=== PATIENT | female | born 1980 | race Two or more races ===

== ENCOUNTER 2022-06-06 15:05 | Emergency (ER) | payer MEDICAID ==
[~2022-06-06] VITALS: Ht 154.9 cm; Wt 86.2 kg
[2022-06-06 15:05] VITALS: BP 131/99
--- NOTE | 2022-06-06 16:20 | NUR ---
Patient discharged to home in stable condition. Written and verbal after care instructions given. Patient verbalizes understanding of instruction.
== END 2022-06-06 16:20 | disposition home or self-care (01) ==
LOC: ER 15:15
DX: R03.0 Elevated blood-pressure reading, without diagnosis of hypertension (principal)

== ENCOUNTER 2022-06-20 12:28 | Emergency (ER) | payer MEDICAID ==
[~2022-06-20] VITALS: Ht 154.9 cm; Wt 85.7 kg
[2022-06-20 12:42] VITALS: BP 138/84
== END 2022-06-20 13:21 | disposition home or self-care (01) ==
LOC: ER 12:36
DX: R03.0 Elevated blood-pressure reading, without diagnosis of hypertension (principal)

== ENCOUNTER 2023-03-05 21:24 | Emergency (ER) | payer MEDICAID ==
[~2023-03-05] VITALS: Ht 154.9 cm; Wt 86.2 kg
--- NOTE | 2023-03-05 22:55 | NUR ---
URINE COLLECTED, SENT TO LAB
[2023-03-05 22:57] LABS: BASOPHILS # (AUTO) 0.1 K/uL (0.0-0.2); BASOPHILS % (AUTO) 1.5 % (0.0-2.0); EOSINOPHILS % (AUTO) 3.3 % (0.0-6.0); HEMATOCRIT 38 % (33-45); LYMPHOCYTES # (AUTO) 2.1 K/uL (0.8-4.8); LYMPHOCYTES % (AUTO) 30.9 % (20.0-44.0); MEAN CORPUSCULAR HGB CONC 34 g/dl (31.0-36.0); MEAN CORPUSCULAR VOLUME 92 fL (82-100); MONOCYTES # (AUTO) 0.4 K/uL (0.1-1.30); NEUTROPHILS # (AUTO) 4.1 K/uL (1.8-8.9); NEUTROPHILS % (AUTO) 58.3 % (43.0-81.0); PLATELET COUNT (AUTO) 219 K/uL (150-450); RED BLOOD CELL COUNT(AUTO) 4.12 MIL/uL (4.0-5.2)
--- NOTE | 2023-03-05 23:03 | NUR ---
20GA TO RIGHT AC ESTABLISHED, BLOOD WORK COLLECTED, SENT TO LAB
[2023-03-05 23:09] LABS: CALCIUM, SERUM 8.9 mg/dL (8.5-10.1); CREATININE 0.7 mg/dL (0.6-1.3)
--- NOTE | 2023-03-05 23:37 | NUR ---
PT DIGNED WAIVER. WILL PROCEED W/ CT
--- NOTE | 2023-03-05 23:39 | NUR ---
TO CT W/ TECH
[2023-03-05] MEDS ORDERED: CT SWABBABLE VALVE TRANS SET 1 EA INFUS.SET MC ONE (23:46)
[2023-03-05] MEDS ORDERED: IV NS 0.9% 250 ML IV ONE (23:46)
[2023-03-05] MEDS ORDERED: IOHEXOL-300 100 ML VIAL IV ONE (23:46)
--- NOTE | 2023-03-05 23:49 | NUR ---
PT BACK FROM CT
[2023-03-06] MEDS ORDERED: NABU-141 PO (01:10)
[2023-03-06 01:36] VITALS: BP 139/89
--- NOTE | 2023-03-06 01:36 | NUR ---
IV removed. Catheter intact and site benign. Pressure and 4x4 applied to site. No bleeding noted. Patient discharged to home in stable condition. Written and verbal after care instructions given. Patient verbalizes understanding of instruction.
== END 2023-03-06 01:37 | disposition home or self-care (01) ==
LOC: ER 21:27
DX: S30.1XXA Contusion of abdominal wall, initial encounter (principal); M54.2 Cervicalgia; V89.2XXA Person injured in unspecified motor-vehicle accident, traffic, initial encounter; Y93.89 Activity, other specified; Y92.89 Other specified places as the place of occurrence of the external cause; Y99.8 Other external cause status
CPT/HCPCS: 99285; 72125; 74177; 85025; 80048; 36415; 84703; J7050; Q9967